=== PATIENT | male | born 1975 | race Caucasian/White ===

== ENCOUNTER 2018-02-16 13:51 | Emergency (ER) | payer OTHER, SELFPAY ==
[2018-02-16 13:51] VITALS: BP 142/82; PULSE 73; RESP 15; TEMP 36.5; O2SAT 100; BMI 28.8
--- NOTE | 2018-02-16 14:58 | ED.NEUROSD ---
HPI - Neuro Symptoms/Deficit General Chief Complaint: Neuro Symptoms/Deficit Stated Complaint: DR STEVE SENT OVER Time Seen by Provider: 02/16/18 13:53 Source: patient Mode of arrival: ambulatory Limitations: no limitations History of Present Illness HPI Narrative: Patient sent from the [facility] urgent care clinic for concerns of continued headache. Patient states that approximately 5 weeks ago he was involved in a snowboarding accident where he states he did not hit his head but was diagnosed with a concussion. He states that he has had multiple CT scans over the past 5 weeks for the evaluation of continued headaches. He states that he felt like his symptoms had been improving somewhat until last weekend where his had a medical issue and he states since then he has had a return of the headaches. States that is the point where he could go to work today. States that he went to urgent care to try to get relief from his headache and they sent him here. On Anticoagulants: No Related Data Previous Rx's Medication Instructions Recorded [id number]-[id number]-[id number] 1 cap PO Q4H PRN #10 cap 02/16/18 Allergies Allergy/AdvReac Type Severity Reaction Status Date / Time ciprofloxacin [From CIPRO] Allergy Unknown Verified 02/02/18 00:21 Review of Systems Constitutional Denies chills, Denies fever(s), Reports headache(s), Denies lethargy and Denies weakness Eyes Denies change in vision, Denies diplopia, Denies eye discharge, Denies irritation and Denies loss of vision ENT Ears, Nose, Mouth, and Throat: Denies change in voice, Denies vertigo, Denies dizziness, Reports headache(s), Denies hoarseness, Denies nasal congestion, Denies neck pain, Denies tinnitus and Denies sore throat Cardiovascular Denies chest pain, Denies irregular heart rhythm, Denies lightheadedness, Denies palpitations, Denies dyspnea, Denies dyspnea on exertion and Denies orthopnea Respiratory Denies cough, Denies dyspnea, Denies dyspnea on exertion and Denies wheezing Gastrointestinal Gastrointestinal: Denies abdominal pain, Denies change in bowel habits, Denies constipation, Denies diarrhea, Denies nausea and Denies vomiting Musculoskeletal Denies neck pain Integumentary/Breasts Denies pruritus, Denies erythema, Denies rash and Denies wounds Neurologic Denies confusion, Denies vertigo, Denies dizziness, Reports headache(s), Denies loss of vision and Denies weakness Psychiatric Denies confusion Endocrine Denies palpitations Hematologic/Lymphatic Denies easy bruising Allergic/Immunologic Denies wheezing [facility] Social History Smoking Status: Never smoker Exam Initial Vital Signs Initial Vital Signs: Vital Signs Temperature 97.7 F 02/16/18 13:51 Pulse Rate 73 02/16/18 13:51 Respiratory Rate 15 02/16/18 13:51 Blood Pressure 142/82 H 02/16/18 13:51 Pulse Oximetry 100 02/16/18 13:51 Const General: cooperative and well developed Nutritional Appearance: well nourished Orientation: alert, awake, oriented x3 and not confused HENNC Head: normocephalic and atraumatic Ears: external ears normal and TM's normal bilaterally Nose: external nose normal and No nasal discharge Face and sinus: sinuses nontender, face symmetric, no sinus tenderness and No dry mucous membranes Mouth: oral mucosae normal and moist mucous membranes Eyes Pupils: PERRL EOM: EOM intact bilaterally Neck Neck: normal visual inspection, trachea midline, No lymphadenopathy and No midline deformity Resp Effort & Inspection: normal respiratory effort, able to speak in complete sentences, no respiratory distress and no use of accessory muscles Auscultation: clear to auscultation bilaterally, no rales, no rhonchi and no wheezes Cardio Rate: regular rate Rhythm: regular rhythm Heart Sounds: no click, no gallops, no murmurs and no rubs Pulses: normal peripheral pulses Skin General: no rashes or lesions noted, No jaundice and No petechiae Neuro General: alert, oriented x3, gait normal and no focal motor deficits Speech: speech normal Extrem General: full ROM, no clubbing, cyanosis or edema, no pedal edema and no calf tenderness Course Orders Ordered: Discontinued Medications Diphenhydramine HCl (Benadryl) 25 mg IV NOW ONE Stop: 02/16/18 14:59 Last Admin: 02/16/18 15:09 Dose: 25 mg Sodium Chloride (Normal Saline 0.9%) 1,000 mls @ 1,000 mls/hr IV BOLUS ONE Stop: 02/16/18 15:57 Last Admin: 02/16/18 15:09 Dose: 1,000 mls/hr Ketorolac Tromethamine (Toradol) 30 mg IV NOW ONE Stop: 02/16/18 14:59 Last Admin: 02/16/18 15:09 Dose: 30 mg Metoclopramide HCl (Reglan) 10 mg IV NOW ONE Stop: 02/16/18 14:59 Last Admin: 02/16/18 15:09 Dose: 10 mg Vital Signs - 8 hr 02/16/18 13:51 02/16/18 15:02 02/16/18 16:10 Temperature 97.7 F Pulse Rate 73 70 68 Respiratory Rate 15 18 12 Blood Pressure 142/82 H Blood Pressure [Right Arm] 119/61 122/73 H Pulse Oximetry 100 100 98 MDM - Neuro Symptoms/Deficit MDM Narrative Medical decision making narrative: Patient has had off and on headaches after a concussion that he sustained approximately 5 weeks ago. His symptoms today are consistent with a post concussive syndrome. He states that he has been diagnosed with this in the past. States he is not take any medication at home. He felt like things were improving until the event last week and made a symptoms return. Will hold on head CT for now. No indication for emergent MRI. He is set up to follow up with a primary care doctor. He was given IV medications here in the emergency department with states completely resolved his headache. Will send home with lana. He was given return precautions. He expressed understanding and agreement with plan Discharge Plan Departure Patient Disposition: Home, Self-Care Clinical Impression: Headache, Post concussion syndrome Instructions: Postconcussion Syndrome Activity Restrictions/Additional Instructions: Take all the medications as instructed. Like we discussed try to avoid activities that make your symptoms worse. Recommend that you may contact with the primary doctor for a follow-up. Return to the emergency department for any new or worsening symptoms Prescriptions: New vryzvedibr-cvwvguprecexo-[id number] 50-300-40 mg capsule 1 cap PO Q4H PRN (Reason: pain) Qty: 10 RF: 0
[2018-02-16 15:02] VITALS: BP 119/61; PULSE 70; RESP 18; O2SAT 100
[2018-02-16] MEDS: diphenhydrAMINE 50 MG/ML VIAL 25 MG IV (15:09)
[2018-02-16] MEDS: KETOROLAC 60 MG/2 ML VIAL 30 MG IV (15:09)
[2018-02-16] MEDS: METOCLOPRAMIDE 10 MG/2 ML INJ IV (15:09)
[2018-02-16] MEDS: SODIUM CHLORIDE 0.9% 1,000 ML 1000 ML IV (15:09)
[2018-02-16 16:10] VITALS: BP 122/73; PULSE 68; RESP 12; O2SAT 98
[2018-02-16 16:58] VITALS: BP 122/72; PULSE 92; RESP 20; O2SAT 100
== END 2018-02-16 17:00 | disposition home or self-care (01) ==
PROVIDERS: Emergency Provider Emergency Medicine; Family Provider Emergency Medicine; PCP Emergency Medicine
DX: R51 Headache (principal); F07.81 Postconcussional syndrome
CPT/HCPCS: 96361; 96374; 96375; 99283; 99284; J1200; J1885; J2765